=== PATIENT | female | born 1960 | race Caucasian/White ===

== ENCOUNTER → 2019-11-12 | Outpatient (CLI) | payer BC ==
--- NOTE | 2019-11-12 13:56 | CT ---
EXAMINATION TYPE: CT knee RT wo con DATE OF EXAM: 11/12/2019 COMPARISON: None. HISTORY: fall, Displaced comminuted fracture of right patella, presurgical, pain. CT DLP: 429.4 mGycm Automated exposure control for dose reduction was used. FINDINGS: There is acute comminuted slightly displaced fracture through the patella with at least 4 fracture fr agments present. Largest fracture fragment involves the right superior aspect measuring 2.5 x 2.2 cm. Second few smaller fracture fragments are likely present. Largest fracture fragment involves the inf erior aspect of 0.5 x 1.5 cm coronal image 12. Areas of displaced measure up to nearly [address] measurement. The patellar tendon appears grossly intact. Moderate size anterior hematoma noted. Distal femur grossly intact. Visualized proximal tibia and fibula are intact. Chitina osseous structur es are demineralized. Mild tricompartment joint space loss. No significant spurring. Posterior crucia te ligament is intact. Small suprapatellar joint effusion or hematoma extending medially. Mild to mod erate diffuse subcutaneous edema. IMPRESSION: As above.
== END | disposition home or self-care (01) ==
LOC: RADCTMAIN 13:13
PROVIDERS: ATTEND Orthopaedic Surgery
DX: S82.041A Displaced comminuted fracture of right patella, initial encounter for closed fracture (principal); Z88.8 Allergy status to other drugs, medicaments and biological substances

== ENCOUNTER 2019-11-16 10:53 | Day surgery (SDC) | payer BC ==
[2019-11-14 09:21] VITALS: BMI 29.4
[~2019-11-16 10:53] MED LIST: DEXAMETHASONE SOD PHOSPHATE 10 MG/ML 1 ML VIAL IV ONE; LACTATED RINGERS 1,000 ML IV SCH; LIDOCAINE 1% (10MG/ML) FOR IV START INTRADERMA PRN; ONDANSETRON 4 MG/2 ML VIAL IVP ONE; ONDANSETRON 4 MG/2 ML VIAL IVP PRN
[2019-11-16 11:42] LABS: Glucose,Whole Blood 115 mg/dL (75-99)
[2019-11-16] MEDS ORDERED: fentaNYL (PF) 50 MCG/ML 2 ML AMP ONE (12:44)
[2019-11-16] MEDS ORDERED: PROPOFOL 10 MG/ML 20 ML VIAL IV ONE (12:44)
[2019-11-16] MEDS ORDERED: MIDAZOLAM 2 MG/2 ML VIAL ONE (12:44)
[2019-11-16] MEDS ORDERED: hydrALAZINE HCL 20 MG/ML 1 ML VIAL ONE (12:44)
[2019-11-16] MEDS ORDERED: HYDROmorphone (PF) 1 MG/ML ONE (12:44)
[2019-11-16] MEDS ORDERED: LIDOCAINE 1% INJ 10MG/ML (20 ML MDV) ONE (12:44)
[2019-11-16] MEDS ORDERED: ceFAZolin 1,000 MG in SODIUM CHLORIDE 0.9% 1,000 ML IRRIGATION ONE (13:16)
--- NOTE | 2019-11-16 14:07 | P.OP ---
Date of Procedure: 11/16/19 Procedure(s) Performed: PREOPERATIVE DIAGNOSES: 1. Right knee patellar fracture POSTOPERATIVE DIAGNOSES: 1. Right knee patellar fracture PROCEDURES PERFORMED: 1. Right knee patellar fracture open reduction and internal fixation (Arthrex 4.0 millimeter cannulated screws and tension band fixation using Arthrex fiber tape) ANESTHESIA: Gen. [employer]: Lili Ramos PA-C (assistance with exposure, hemostasis, retraction, fixation, closure, dressing, splint) COMPLICATIONS: None ESTIMATED BLOOD LOSS: Less than 10 mL. DISPOSITION: To post-anesthesia care unit INDICATIONS: Olesya is a 59-year-old female with a history of falling and sustaining a fracture of right patella. Preoperative CT scanning has shown a complex stellate fracture with evidence of significant comminution. The main fracture site is displaced by 7-8 mm and there is functional disruption of the extensor mechanism. We have discussed open reduction and internal fixation of the patella in detail in the office and the patient wishes to proceed. I have discussed potential risks and complications as per the preoperative office note. The consent form has been signed. PROCEDURE: After appropriate consent was obtained, the patient was taken to the operating room placed in the supine position. Anesthesia was initiated, and after confirmation of adequate anesthesia, the patient was carefully positioned. Care was taken to make sure that all pressure points were adequately padded. Prepping and draping were completed in the usual aseptic fashion using ChloraPrep. Timeout was called, confirming patient identity, side, procedure, and administration of antibiotics. A pneumo tourniquet was used high on the left thigh. The limb was exsanguinated with an Esmarch bandage and the tourniquet was then inflated to 350 mmHg. Midline longitudinal incision was created directly over the patella for a dista nce of approximately 5 inches. It was carried down through skin into subcutaneous tissues and to patellar fascia. Full thickness subcutaneous flaps were created medially and laterally affording good exposure of the entire patella. The fracture was clearly visible and was cleaned of hematoma and any interposed tissue with a curette. Subsequent, large pointed reduction forceps were used to secure the fracture in a reduced position. Guide pins were placed from distal to proximal for placement of 4.0 mm cannulated screws. The guide pins were placed in non-parallel fashion (due to fracture configuration) using a guide and care was taken to make sure that they did not enter the deep surface of the joint. C-arm imaging was used to confirm good placement of the guide pins. Guide pins were then measured and appropriately sized 4.0 mm cannulated screws were inserted over the guide pins until they were in a fully deployed position with excellent apposition of the fracture fragments. Next, a patellar fixation set Arthrex fiber tape on a long straight needle was used through the screws in a [id number] pattern around the anterior aspect of the patella and was tightened down to implement a tension band construct. The knot was placed at the inferomedial corner of the patella and then was buried within the patellar tendon with the use of a 0 Vicryl suture. The knee was then gently bent to 90 to test the repair. The repair was completely stable and there was no evidence of significant patellofemoral crepitus. Testing beyond 90 was not performed. Subsequently, the wound was thoroughly irrigated with normal saline and final hemostasis was obtained using electrocautery after deflation of tourniquet. Closure was performed using 2-0 Vicryl suture for the subcutaneous tissues and prepatellar bursa followed by standard skin closure with strata fix and Dermabond. Sterile dressing was applied and a knee immobilizer was applied. Patient tolerated the procedure well and taken to recovery room in stable condition. Sponge and needle counts were correct.
--- NOTE | 2019-11-16 14:33 | FL ---
Fluoroscopy History: Patellar fracture 11 sec. fluoro time.
[2019-11-16] MEDS: HYDROmorphone 0.5 MG/0.5 ML SYRINGE IVP PRN ×3 (14:40→14:59)
[2019-11-16 14:43] VITALS: TEMP 96.9
[2019-11-16] MEDS ORDERED: LACTATED RINGERS 1,000 ML IV ONE (14:47)
[2019-11-16 14:48] LABS: Glucose,Whole Blood 111 mg/dL (75-99)
[2019-11-16] MEDS ORDERED: HYDROmorphone 0.5 MG/0.5 ML SYRINGE IVP ONE (15:07)
[2019-11-16 15:26] VITALS: RESP 16
[2019-11-16] MEDS ORDERED: METOCLOPRAMIDE 5 MG/ML 2 ML VIAL ONE (16:27)
[2019-11-16] MEDS ORDERED: METOCLOPRAMIDE 5 MG/ML 2 ML VIAL IVP ONE (16:31)
[2019-11-16] MEDS ORDERED: ONDANSETRON 4 MG/2 ML VIAL IVP ONE (16:34)
[2019-11-16 17:08] VITALS: BP 143/63; PULSE 60
== END 2019-11-16 18:34 | disposition home or self-care (01) ==
LOC: OR 10:53
PROVIDERS: ATTEND Orthopaedic Surgery
DX: S82.041A Displaced comminuted fracture of right patella, initial encounter for closed fracture (principal); E11.9 Type 2 diabetes mellitus without complications; Z88.0 Allergy status to penicillin; Z88.8 Allergy status to other drugs, medicaments and biological substances; Z79.84 Long term (current) use of oral hypoglycemic drugs; Z79.1 Long term (current) use of non-steroidal anti-inflammatories (NSAID); Z97.3 Presence of spectacles and contact lenses; Z90.710 Acquired absence of both cervix and uterus; Z90.49 Acquired absence of other specified parts of digestive tract; Z98.890 Other specified postprocedural states; Z87.891 Personal history of nicotine dependence; Z83.3 Family history of diabetes mellitus; W01.198A Fall on same level from slipping, tripping and stumbling with subsequent striking against other object, initial encounter; Y93.E9 Activity, other interior property and clothing maintenance; Y92.018 Other place in single-family (private) house as the place of occurrence of the external cause
CPT/HCPCS: 73560; 27524; C1713 ×3; J2250; J0360; J2765; J0690 ×2; J2405; J2001; J3010; J1170 ×2; J2704

== ENCOUNTER → 2020-06-06 | Outpatient (CLI) | payer BC ==
--- NOTE | 2020-06-06 11:30 | US ---
EXAMINATION TYPE: US venous doppler duplex LE RT DATE OF EXAM: 06/06/2020 10:53 AM COMPARISON: 11/08/2019 CLINICAL HISTORY: 59-year-old female M25.561 Pain in right knee I82.401 Swelling. Right leg pain and swelling x couple months SIDE PERFORMED: Right TECHNIQUE: The lower extremity deep venous system is examined utilizing real time linear array sonog marcello with graded compression, doppler sonography and color-flow sonography. FINDINGS: VESSELS IMAGED: Common Femoral Vein Deep Femoral Vein Greater Saphenous Vein * Femoral Vein Popliteal Vein Small Saphenous Vein * Proximal Calf Veins (* superficial vessels) Right Leg: Appears negative for DVT IMPRESSION: No evidence for DVT within the right lower extremity imaged from the groin to the upper calf.
== END | disposition home or self-care (01) ==
LOC: RADUSWWP 10:30
PROVIDERS: ATTEND Orthopaedic Surgery
DX: I82.401 Acute embolism and thrombosis of unspecified deep veins of right lower extremity (principal); M25.561 Pain in right knee

== ENCOUNTER → 2024-01-10 | Outpatient (CLI) | payer BC ==
--- NOTE | 2024-01-11 07:13 | CA ---
Transthoracic Echo Report Name: Olesya Mckay Age: 63 Gender: F : 1960 Exam Date: 01/10/2024 15:08 Exam Location: [facility] Ht (in): 65 Wt (lb): 190 Ordering Physician: Andres Sam MD Attending/Referring Phys: Demetra Mcginnis [facility] Respiratory Therapy Assistant Dora Guo RDCS Procedure CPT: Indications: R42 DIZZY GIDDY Cardiac Hx: Technical Quality: Good Contrast 1: Total Dose (mL): Contrast 2: Total Dose (mL): MEASUREMENTS (Male / Female) Normal Values 2D ECHO LV Diastolic Diameter PLAX 4.4 cm 4.2 - 5.9 / 3.9 - 5.3 cm LV Systolic Diameter PLAX 3.1 cm IVS Diastolic Thickness 0.8 cm 0.6 - 1.0 / 0.6 - 0.9 cm LVPW Diastolic Thickness 0.7 cm 0.6 - 1.0 / 0.6 - 0.9 cm LV Relative Wall Thickness 0.3 LVOT Diameter 2.0 cm Aortic Root Diameter 2.3 cm LV Diastolic Volume MOD BP 92.9 cm??? 67 - 155 / 56 - 104 cm??? LV Systolic Volume MOD BP 34.2 cm??? 22 - 58 / 19 - 49 cm??? LV Ejection Fraction MOD BP 63.2 % >= 55 % LV Cardiac Index MOD BP 2037.8 cm???/min???m??? LV Diastolic Volume MOD 4C 93.7 cm??? LV Systolic Volume MOD 4C 40.3 cm??? LV Ejection Fraction MOD 4C 57.0 % LV Cardiac Index MOD 4C 1851.4 cm???/min???m??? LV Diastolic Length 4C 8.2 cm LV Systolic Length 4C 6.5 cm LV Diastolic Volume MOD 2C 86.8 cm??? LV Systolic Volume MOD 2C 28.7 cm??? LV Ejection Fraction MOD 2C 66.9 % LV Cardiac Index MOD 2C 2015.9 cm???/min???m??? LV Diastolic Length 2C 7.7 cm LV Systolic Length 2C 6.6 cm LA Volume 44.2 cm??? 18 - 58 / 22 - 52 cm??? LA Volume Index 21.9 cm???/m??? 16 - 28 cm???/m??? Ascending Aorta Diameter 3.1 cm DOPPLER AV Peak Velocity 118.5 cm/s AV Peak Gradient 5.6 mmHg AV Mean Velocity 82.3 cm/s AV Mean Gradient 3.1 mmHg AV Velocity Time Integral 26.2 cm LVOT Peak Velocity 100.2 cm/s LVOT Peak Gradient 4.0 mmHg LVOT Velocity Time Integral 22.5 cm LVOT Stroke Volume 70.1 cm??? LVOT Stroke Volume Index 36.2 ml/m??? LVOT Cardiac Index 2432.6 cm???/min???m??? AV Area Cont Eq vti 2.7 cm??? AV Area Cont Eq pk 2.6 cm??? PV Peak Velocity 68.9 cm/s PV Peak Gradient 1.9 mmHg FINDINGS Left Ventricle Left ventricular ejection fraction is estimated at 55-60 %. Left ventricular cavity size normal. Left ventricular wall thickness normal. No obvious regional wall motion abnormalities. Right Ventricle Normal right ventricular size and function. Unable to estimate the right ventricular systolic pressure. Right Atrium Normal right atrial size. Left Atrium Normal left atrial size. Mitral Valve Structurally normal mitral valve. No evidence for mitral valve prolapse. No mitral stenosis. Trace mitral regurgitation. Aortic Valve Trileaflet aortic valve. No aortic valve stenosis, trace regurgitation. Tricuspid Valve Structurally normal tricuspid valve. No tricuspid stenosis. Trace tricuspid regurgitation. Pulmonic Valve Pulmonic valve not well visualized. No pulmonic stenosis. No pulmonic regurgitation. Pericardium No pericardial effusion. Aorta Normal size aortic root and proximal ascending aorta. CONCLUSIONS 1. Normal left ventricular size and systolic function 2. Trace mitral, tricuspid and aortic regurgitation Previewed by: Dr. Lucien Gamez MD (Electronically Signed) Final Date: 11 January 2024 07:12
== END | disposition home or self-care (01) ==
LOC: RADECHMAIN 14:54
PROVIDERS: ATTEND Internal Medicine Geriatric Medicine
DX: I08.3 Combined rheumatic disorders of mitral, aortic and tricuspid valves (principal); R42 Dizziness and giddiness
CPT/HCPCS: 93306